=== PATIENT | female | born 1985 | race Two or more races ===

== ENCOUNTER 2020-09-11 20:14 | Emergency (ER) | payer OTHER ==
[~2020-09-11] VITALS: Ht 170.2 cm; Wt 108.9 kg
[~2020-09-11 20:14] MED LIST: PERCOCET 5/3251 TAB PO; PRENATABS RX TA1 TAB
== END 2020-09-11 22:37 | disposition home or self-care (01) ==
LOC: ER 20:14
DX: K05.319 Chronic periodontitis, localized, unspecified severity (principal)

== ENCOUNTER 2021-02-01 13:32 | Emergency (ER) | payer OTHER ==
[~2021-02-01] VITALS: Ht 170.2 cm; Wt 92.5 kg
== END 2021-02-01 19:51 | disposition home or self-care (01) ==
LOC: ER 13:32
DX: G43.909 Migraine, unspecified, not intractable, without status migrainosus (principal)

== ENCOUNTER 2023-10-16 16:58 | Emergency (ER) | payer OTHER ==
[~2023-10-16] VITALS: Ht 167.6 cm; Wt 104.3 kg
[2023-10-16] MEDS ORDERED: TRAMADOL HCL 50 MG TABLET PO ONE (17:30)
[2023-10-16] MEDS ORDERED: ORPHENADRINE CITRATE 30 MG/ML AMPUL ONE (17:58)
[2023-10-16] MEDS ORDERED: KETOROLAC TROMETHAMINE 60 MG VIAL IM ONE ×2 (17:59→18:00)
[2023-10-16] MEDS ORDERED: ORPHENADRINE CITRATE 30 MG/ML AMPUL IM ONE (18:00)
[2023-10-16] MEDS ORDERED: NORFLEX100MG PO (18:38)
[2023-10-16] MEDS ORDERED: DICLOFENAC SODI50 MG PO (18:38)
== END 2023-10-16 18:47 ==
LOC: ER 16:59
DX: M54.50 Low back pain, unspecified (principal); M62.830 Muscle spasm of back

== ENCOUNTER → 2024-03-31 | Emergency (ER) | payer OTHER ==
[~2024-03-31] VITALS: Ht 167.6 cm; Wt 108.9 kg
[~2024-03-31] MED LIST changes: +DICLOFENAC SODI50 MG PO; +LOSARTAN POTASS25 MG; +NORFLEX100MG PO
[2024-03-31 21:06] VITALS: BP 125/85; O2SAT 98
== END | disposition left against medical advice (07) ==
LOC: ER 20:52
DX: Z53.21 Procedure and treatment not carried out due to patient leaving prior to being seen by health care provider (principal)

== ENCOUNTER 2024-10-25 11:21 | Emergency (ER) | payer OTHER ==
[~2024-10-25] VITALS: Ht 167.6 cm; Wt 102.1 kg
[2024-10-25] MEDS ORDERED: NORFLEX100MG PO (12:03)
[2024-10-25] MEDS ORDERED: ORPHENADRINE CITRATE 30 MG/ML AMPUL IM ONE (12:15)
[2024-10-25] MEDS ORDERED: KETOROLAC TROMETHAMINE 60 MG VIAL IM ONE (12:15)
== END 2024-10-25 12:30 | disposition home or self-care (01) ==
LOC: ER 11:21
DX: M62.830 Muscle spasm of back (principal); I10 Essential (primary) hypertension

== ENCOUNTER 2024-12-10 11:04 | Emergency (ER) | payer OTHER ==
[~2024-12-10] VITALS: Ht 167.6 cm; Wt 95.3 kg
[2024-12-10] MEDS ORDERED: CEFTRIAXONE SODIUM 1,000 MG VIAL IM ONE (12:30)
== END 2024-12-10 13:56 ==
LOC: ER 11:04
DX: J06.9 Acute upper respiratory infection, unspecified (principal)